=== PATIENT | female | born 1985 | race Asian ===

== ENCOUNTER 2024-11-10 09:16 | Emergency (ER) | payer BC, SELFPAY ==
[2024-11-10 09:24] VITALS: BP 142/92
--- NOTE | 2024-11-10 10:14 | ED.GENMED ---
History of Present Illness
General
Chief Complaint: Headache
Time Seen by Provider: 11/10/24 10:13
History of Present Illness
History of Present Illness:
TIME OF INITIAL ENCOUNTER: 10:15 AM
Here
HPI: Patient presents due to headache. This was gradual in onset and progression that started 5 days ago. She has had similar but much less severe symptoms. She is photophobic and photophobic. She denies any head trauma. She went to urgent care
who wanted her to come in here for further evaluation and neuroimaging. She has had no fevers.
EXAM:
GENERAL: She appears uncomfortable and primarily keeps her eyes closed
HEENT: Moist oral mucosa
CARDIOVASCULAR: No murmurs, normal heart rate, regular rhythm, No chest wall tenderness
PULMONARY: No respiratory distress, breath sounds are clear and equal
ABDOMEN: Soft with no peritoneal signs, no tenderness
NEUROLOGIC: Excellent strength all extremities, no coordination deficits
PSYCHIATRIC: Appropriate mental status, normal insight and judgement
EXTREMITIES: Nontender, no edema, moves all extremities equally
SKIN: No rash, no lesions
NUMBER AND COMPLEXITY OF PROBLEMS ADDRESSED AT THE ENCOUNTER
� Chronic conditions affecting care: No significant past medical history
� Acute Exacerbation and/or Progression of Chronic Illness: This is an acute problem
� Differential Diagnosis includes: Acute migraine, intracranial hemorrhage less likely, intracranial mass unlikely
AMOUNT AND/OR COMPLEXITY OF DATA TO BE REVIEWED AND ANALYZED
� I performed an independent evaluation of and my interpretation is:
EKG:
CT: CT head shows no acute abnormality
X-rays:
Laboratory Studies: CBC and chemistries relatively unremarkable, hCG negative
Other:
� Review of other/old records: No old records available for review in [facility]
� Clinical information was obtained by an independent historian: I spoke to at bedside
� Prescriptions/Medications Considered but not given:
� Further testing considered but not performed:
RISK OF COMPLICATIONS AND/OR MORBIDITY OR MORTALITY OF PATIENT MANAGEMENT
� Social determinants of health affecting care: Lives at home
� Discussion with other providers: I discussed case with Dr. Ho, neurology. He also agreed with adding Depacon. Hospitalist for admission.
� Escalation of care including admission/observation vs risk of discharge considered: The patient presents with photophobia, phonophobia, and has rather significant headache that was gradual in onset and progression from 5 days
ago. Reglan/Benadryl/Toradol ordered.
ANY OTHER UPDATES:
1 PM: I reassessed patient, she reports some improvement but still remains to appear somewhat uncomfortable. Patient states that despite all the meds, pain went from a 10 only down to an 8. She remains to appear uncomfortable. She is wondering
what she can take at home however given the fact that she remains very uncomfortable and this is an acute problem, I recommend she stay in the hospital for further evaluation. Neurology had recommended MRI which I have ordered.
Phy Exam
Physical Exam
Physical Exam:
See HPI
Course
Orders/Labs/Results
Orders:
Orders
11/10/24 09:[address] [CT Head W/o Iv Contrast] Urgent
Comment:
Reason For Exam: headache
11/10/24 10:23
0.9% Sodium Chloride 1000 ml [Nss] 1,000 ml IV BOLUS
Diphenhydramine [Benadryl] 25 mg IV NOW STA
Ketorolac [Toradol] 15 mg IV NOW STA
Metoclopramide [Reglan] 10 mg IV NOW STA
11/10/24 10:24
Test Result ONCE
11/10/24 11:12
CRP [C-Reactive Protein] Routine
Comment: May add to blood in lab
Complete Blood Count/With Diff Urgent
Comprehensive Metabolic Panel Urgent
HCG, Serum Qualitative Screen Urgent
11/10/24 12:29
Valproate Sodium [Depacon] 1,000 mg 0.9% Sodium Chloride 50 ml [Nss] 50 ml IV NOW
11/10/24 13:48
MR Brain Without Contrast Urgent
Comment:
Reason For Exam: new severe GARZA
Recent pill cam endoscopy?: No
11/10/24 14:25
Add On- LAB Urgent
Tests Added?: CRP
11/11/24 06:00
Erythrocyte Sed Rate IN AM
Abnormal Lab Results
11/10/24
11:12
Absolute Neuts (auto) 7.8 H 10^3/uL
(1.4-6.5)
Neutrophils % 80.9 H %
(42.2-75.2)
Lymphocytes % 13.6 L %
(20.5-51.1)
BUN 18 H mg/dl
(7-17)
Creatinine 0.4 L mg/dL
(0.6-1.0)
Glucose 116 H mg/dl
(70-99)
AST 38 H U/L
(14-36)
ALT 36 H U/L
(0-35)
11/10/24 11:12
11/10/24 11:12
Vital Signs
Initial and Last Documented VS:
Initial Vital Signs
Temp Pulse Resp BP Pulse Ox
36.9 C 80 18 142/92 98
11/10/24 09:24 11/10/24 09:24 11/10/24 09:24 11/10/24 09:24 11/10/24 09:24
Last Documented Vital Signs
Temp Pulse Resp BP Pulse Ox
36.9 C 80 18 142/92 98
11/10/24 09:24 11/10/24 09:24 11/10/24 09:24 11/10/24 09:24 11/10/24 09:24
*Critical Care Note
Total Time (30-74mins, 75-104mins- exclusive of procedures): Not Applicable
ED Attending Note
-
Portions of this chart may have been created with voice recognition software.� Occasional wrong word or��sound alike� substitutions may have occurred due to the inherent limitations of voice recognition software.
Discharge Plan
Departure
Patient Disposition: Admit
Date of Disposition: 11/10/24
Time of Disposition: 13:47
Presentation/result/management discussed w/ accepting MD/DO: Hospitalist
Discharge Problem:
Acute intractable headache
Prescriptions:
No Action
ibuprofen [Advil] 200 mg Tablet
400 mg PO Q8HPRN PRN (Reason: mild pain)
Referrals:
Pito Ashley DO [Family Provider] -
Interventions
Interventions:
*Risk Screen - Suicide Last Done: 11/10/24 09:24
*General Assessment Last Done: 11/10/24 09:24
*Neglect/Abuse Screening Last Done: 11/10/24 09:24
ED- Neurological Assessment Last Done: 11/10/24 11:10
Discharge Date and Time
Print Language: PORTUGUESE
[2024-11-10] MEDS: TORADOL 15 MG IV (11:03)
[2024-11-10] MEDS: REGLAN 10 MG IV (11:03)
[2024-11-10] MEDS: NSS 1000 IV (11:03)
[2024-11-10] MEDS: BENADRYL 25 MG IV (11:03)
[2024-11-10 11:30] LABS: % Basophils 0.2 % (0-2); % Immature Granulocytes 0.4 % (0-0.5); % Lymphocytes 13.6 % (20.5-51.1); % Monocytes 4.9 % (1.7-9.3); % Neutrophils 80.9 % (42.2-75.2); Absolute Lymphocytes 1.3 10^3/uL (1.2-3.4); Absolute Monocytes 0.5 10^3/uL (0.1-0.6); Absolute Neutrophils 7.8 10^3/uL (1.4-6.5); Hematocrit 41.3 % (37.0-47.0); Hemoglobin 14.1 g/dL (12.0-16.0); Mean Corp Hgb Conc. 34.1 g/dL (33.0-37.0); Mean Corpuscular Hgb 29.4 pg (27.0-31.0); Mean Platelet Volume 10.2 fL (7.4-10.4); Nucleated Red Blood Cells % 0 %; Platelet Count 229 10^3/uL (130-400); Red Cell Dist. Width 12.1 % (11.5-14.5); White Blood Cell Count 9.7 10^3/uL (4.8-10.8)
[2024-11-10 11:43] LABS: HCG, Serum Qualitative Screen Negative
[2024-11-10 11:49] LABS: ALT (SGPT) 36 U/L (0-35); AST (SGOT) 38 U/L (14-36); Albumin 4.5 g/dl (3.5-5.0); Alkaline Phosphatase 71 U/L (38-126); Blood Urea Nitrogen 18 mg/dl (7-17); Calcium 9.7 mg/dl (8.4-10.2); Carbon Dioxide 23 mmol/L (22-30); Chloride 104 mmol/L (98-107); Glucose 116 mg/dl (70-99); Sodium 138 mmol/L (135-145); Total Bilirubin 0.8 mg/dl (0.2-1.3); Total Protein 7.9 g/dl (6.3-8.2); eGFR > 60.00
[2024-11-10 12:26] VITALS: BMI 21.5
[2024-11-10] MEDS: DEPACON 60 MG IV (12:41)
[2024-11-10] MEDS: ATIVAN 1 MG PO (15:05)
--- NOTE | 2024-11-10 15:37 | W.PN.UPDATE ---
Update Note
Progress Note Update
Resident evaluated the pt but not seen by me as she was discharged
--- NOTE | 2024-11-10 16:25 | CON.NEURO ---
Neuro Assessment/Plan
Assessment
39 year old woman with migraine, status migrainosus x5 days. Suspecting cervicogenic, exam with atlanto axial subluxation and cervical subluxation on palpation, with tenderness, trigger points. she was treated with Toradol, reglan, benadryl, IV
depacon, and I gave her OMT, and sphenopalatine ganglion block (nasal) with ~25% improvement
Patient and would prefer her to go home, as she has not been sleeping well, would not rest well in the hospital.
CRP 5.9, not consistent with temporal arteritis
Head CT imgs rev'd, normal
Plan
ok to discharge home per patient preference
MRI brain w/o contrast as outpatient given age >40
trial of Ativan 1 mg PO x1, and sumatriptan 50 mg #9 tablet box
Consultation
Order
Date of Consultation: 11/10/24
Requesting Provider:
Reason for Consult:
Subjective/Objective
Subjective Data
Date of Service: November 10, 2024
She is a 39 year old woman presenting with 5 days of worsening headache. bitemporal, squeezing, severe, with photophobia, phonophobia, nausea, vomiting. Had a migraine 20 years ago but is not a habitual headache sufferer. No weakness/numbness. +neck
pain
Objective Data
Vital Signs
Temp Pulse Resp BP Pulse Ox
36.9 C 80 18 142/92 98
11/10/24 09:24 11/10/24 09:24 11/10/24 09:24 11/10/24 09:24 11/10/24 09:24
Lab Results
11/10/24 11:12
11/10/24 11:12
Sodium 138 mmol/L (135-145) 11/10/24 11:12
Potassium 4.0 mmol/L (3.5-5.1) 11/10/24 11:12
BUN 18 mg/dl (7-17) H 11/10/24 11:12
Glucose 116 mg/dl (70-99) H 11/10/24 11:12
Calcium 9.7 mg/dl (8.4-10.2) 11/10/24 11:12
Patient Allergies
No Known Allergies Allergy (Unverified 11/10/24 09:23)
Physical Exam
-
AAOx3, speech clear, language intact
VFF, EOMI, face symmetric
full strength b/l UE/LE
sensation intact to touch/temp
cervical rotation decreased to the right. Palpated right c3 and left c4 cervical sublux with overlying trigger points, tender
Medications
-
Home Medications
�Medication �Instructions �Recorded
ibuprofen 200 mg tablet (Advil) 400 mg PO Q8HPRN PRN mild pain 11/10/24
sumatriptan succinate 50 mg tablet 50 mg PO ONCE PRN migraine 11/10/24
headache #9 tabs
--- NOTE | 2024-11-10 17:25 | W.PN.UPDATE ---
Update Note
Progress Note Update
39yo F with no significant PMH who presents to ED for migraine that started on 11/05/24 and has been worsening. Patient seen and evaluated at bedside given plan for hospital admission. Headache slightly improved after medications in ER, though still
very uncomfortable and rates pain /10. Reviewed plan for observation in hospital, MRI, and medication management; however, patient and decided to go home instead. She was already seen by neurology in ED, who will send script for
sumatriptan. She will get MRI outpatient and follow up with PCP/neurology. Discussed with Dr. Mckenzie and Dr. Ho.
== END 2024-11-10 15:49 | disposition home or self-care (01) ==
LOC: EMR 09:16
PROVIDERS: CONSULT PHYSICIAN Psychiatry & Neurology Clinical Neurophysiology; EMERGENCY PHYSICIAN Emergency Medicine; FAMILY PHYSICIAN Family Medicine
DX: R51.9 Headache, unspecified (principal)
CPT/HCPCS: 99284; 96365; 96375; 70450; 80053; 84703; 85025; 86140